=== PATIENT | female | born 1950 | race Caucasian/White ===

== ENCOUNTER → 2018-01-06 08:18 | Outpatient (CLI) | payer MEDICARE, OTHER, SELFPAY ==
[2018-01-06 13:03] LABS: Free T3 3.2 pg/mL (2.18-3.98); Thyroid Stim Hormone (TSH) 0.44 uIU/mL (0.358-3.74)
[2018-01-07 20:07] LABS: Thyroid Peroxidase AB 13 IU/mL (0-34)
[2018-01-08 11:56] LABS: Thyroglobulin Antibody < 1.0 IU/mL (0.0-0.9)
== END ==
PROVIDERS: Family Provider Family Medicine; PCP Family Medicine; Visit Provider Family Medicine
DX: E03.9 Hypothyroidism, unspecified (principal)
CPT/HCPCS: 36415; 84439; 84443; 84481; 86376; 86800

== ENCOUNTER → 2018-01-07 12:03 | Outpatient (CLI) | payer MEDICARE, OTHER, SELFPAY | PROVIDERS: Family Provider Family Medicine; PCP Family Medicine; Visit Provider Family Medicine | DX: E04.9 Nontoxic goiter, unspecified (principal) | CPT/HCPCS: 76536 ==

== ENCOUNTER → 2018-01-08 08:11 | Outpatient (CLI) | payer MEDICARE, OTHER, SELFPAY | PROVIDERS: Family Provider Family Medicine; PCP Family Medicine; Visit Provider Family Medicine | DX: E04.1 Nontoxic single thyroid nodule (principal) | CPT/HCPCS: 78012; A9516 ==

== ENCOUNTER 2018-01-24 09:15 | Observation (INO) | payer MEDICARE, OTHER, SELFPAY ==
[2018-01-24] VITALS (8 sets, daily range): BP systolic 134–146; BP diastolic 77–94; PULSE 86–106; RESP 15–16; TEMP 36.3–36.7; O2SAT 93–98; BMI 27.3
--- NOTE | 2018-01-24 | THYROID_PTH ---
PATIENT: DB GAGE LOC: MS3 U#:[id number] AGE/SX: 67/F ROOM: DC316 RE01/24/[address]: Dr. Michael Turner MD : 1950 BED: 1 DIS: 01/25/2018 SPEC #: [id number] RECD: 01/24/18 08:47 STATUS: TARI REAnnie #: [id number] VICKY: 01/24/18 00:[address]: Michael Turner DEPT: SURGICAL PATHOLOGY RECD BY: Nika Darden ENTERED: 01/24/18 10:22 SP TYPE: THYROID OTHR DR: Dr. Adele Lawrence MD Tissues: Thyroid gland, NOS Procedures: Frozen Section (charge) Surgery Specimen Level V Frozen (no charge) HEADER OPERATION: Thyroidectomy, partial PRE-OP DIAGNOSIS: Left toxic uninodular goiter with no crisis, dysphagia TISSUE SUBMITTED: Left thyroid lobe ? frozen section to lb 0843 FROZEN SECTION DIAGNOSIS Left lobe of thyroid, lobectomy: Colloid nodule. AM:kiana 01/24/18 MICROSCOPIC DIAGNOSIS Left lobe of thyroid, lobectomy: Multinodular goiter. See comment. MONICA:kiana 01/28/18 COMMENT The smaller nodule show focal calcifications. MICROSCOPIC DESCRIPTION Slides are reviewed. GROSS DESCRIPTION Received fresh for frozen section consultation labeled with the patient's name is a specimen designated left thyroid lobe. The specimen consists of a lobe of thyroid measuring 5 x 4 x 1.6 cm and weighing 10.8 gm. No orientation is provided. The specimen is inked and serially sectioned to reveal two gelatinous nodules. The largest nodule measures 2.5 cm and occupies the mid portion of the specimen. A smaller nodule measuring 0.9 cm is present adjacent to this nodule. The entire specimen is submitted as follows: 1 - sales representative gas service sections of the largest nodule is submitted for frozen section consultation in one block, 2-7 ? remainder of larger nodule, 8 ? smaller nodule, 9 & 10 ? remainder of the tissue with smaller fragments of largest nodule. / AM:kiana 01/24/18 TC:5 CPT: 04307, 89730
[2018-01-24 06:25] LABS: Hematocrit 41.3 % (37-47); Hemoglobin 13.6 g/dl (12.0-15.0); Mean Corp Hgb Conc 32.9 g/gl (32-36); Mean Corpuscular Hgb 28.5 pg (27.0-32.0); Mean Corpuscular Volume 86.4 fL (81-99); Mean Platelet Vol. 8.9 fl (6.2-12.0); Platelet Count 214 K/mm3 (150-450); RBC Distribution Width CV 13.7 % (11.6-14.6); RBC Distribution Width SD 43.2 fl (35.1-43.9); Red Blood Count 4.78 M/mm3 (4.2-5.4); White Blood Count 6.5 K/mm3 (4.4-11.0)
[2018-01-24 06:28] LABS: Scan Indicated on CBC? Y/N NO
[2018-01-24 06:36] LABS: Anion Gap 11 (5-15); BUN 18 mg/dL (7-18); BUN/Creat Ratio 26.1 RATIO (10-20); Calcium,Total 8.5 mg/dL (8.5-10.1); Chloride 108 mmol/L (98-107); Creatinine, Serum 0.69 mg/dL (0.55-1.02); EST Glomerular Filtration Rate 91 mL/min (>60); Est Glom Filt Rate - Afr Amer 110 mL/min (>60); Estimated Creatinine Clearance 70.19 ml/min; Glucose 92 mg/dL (74-106); Potassium 4.1 mmol/L (3.5-5.1); Sodium Level 143 mmol/L (136-145)
--- NOTE | 2018-01-24 09:09 | PCM.OPRPT ---
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 Laboratory testing showed her TSH to be depressed suggesting subclinical hyperthyroidism and nuclear medicine uptake scan showed a autonomous nodule within the bed of left thyroid. Given the increasing size and risk of hyperthyroidism she elected surgical excision for both cure and definitive evaluation. The risks, alternatives, potential benefits, and complications were discussed at length and any questions answered to the patient and/or caregiver's satisfaction. Witnessed informed consent was obtained in the office, and the patient and/or caregiver was agreeable to proceed. Procedure went as follows: The patient was identified in the preoperative holding and brought to the operating room, placed under general anesthesia and intubated. The neuro monitoring electrodes were then placed in the chest and confirmed to be operational in accordance with the advertising sales associate's directions to allow for recurrent laryngeal nerve monitoring. The neck was then prepped and draped in usual sterile fashion and the planned skin incision was marked 2 finger breadths above the sternal notch with a marking pen. The incisional line was then injected with 1% lidocaine with 100,000 epinephrine for a total of 4 cc. After allowing for vasoconstriction, a 15 blade scalpel was used to make an incision 8 cm in length through the skin and subcutaneous tissues and platysma. A subplatysmal flap was then elevated superiorly and inferiorly to allow placement of the self-retaining thyroid retractor. The strap muscles were then divided in the midline and beginning on the left side the thyroid lobe dissected in a sub-capsular fashion. The inferior, middle, and superior thyroid vessels were individually clamped and ligated with a combination of 3-0 silk sutures and vascular clips. The parathyroid glands were identified along the inferior vascular pedicle and preserved the recurrent laryngeal nerve was also identified and followed to its nerve entry point and the thyroid gland dissected free of its attachments to the trachea at Broyle's ligament. This was then transected at the isthmus and sent for pathologic evaluation. No significant bleeding was encountered and #7 flat drains were then placed into each tracheoesophageal groove and brought out through a separate stab incision in the neck and secured with 3-0 silk sutures. The strap muscles were then re-approximated in the midline with a running 3-0 Vicryl suture followed by interrupted 3-0 Vicryl sutures to close the platysma and subcutaneous tissues. A 5-0 Monocryl was then used to close the skin followed by Steri-Strips completing the procedure. An NG tube was then placed to decompress the stomach and the patient returned to anesthesia, revived and extubated having tolerated the procedure well. Type of Anesthesia:: General Anesthesiologist: Nixon Dominguez Special Medications: none Specimen's removed: left lobe of thyroid Drains: #7 flat HAMILTON Estimated Blood Loss (mL): 10 mL Fluids Replaced: 1400 mL - Complications none - Admit VTE Documentation VTE Present on Admission: No VTE Mechan Device Prophylaxis: SCD's VTE Pharm Prophylaxis ordered?: No
--- NOTE | 2018-01-24 09:14 | PCM.DC ---
- Discharge Diagnoses Current Active Problems: Current Active and Chronic Problems (This Medical Record has been edited. 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 Call your doctor if your incision/area has: Increased Pain/ Swelling, Increased Redness, Swelling at the incision site Call your doctor if you observe: Fever of 101 or Higher, Uncontrolled pain Suture Line Care: Avoid Pulling/Pushing Cleanse incision/area with: Keep Dressing Clean & Dry Allergies/Adverse Reactions: Allergies latex Allergy (Verified 01/17/18 08:41) Rash Medications to take at Discharge Estradiol [Estrace] 1 mg PO BID 04/10/16 Aspirin E.C. [Ecotrin] 81 mg PO DAILY@0800 01/17/18 Cholecalciferol (Vitamin D3) [Vitamin D3] 2,000 unit PO DAILY 01/17/18 L.acidoph,Paracasei, B.lactis [Probiotic] 1 each PO DAILY 01/17/18 Loratadine 10 mg PO PRN PRN 01/17/18 Multivit with Calcium,Iron,Min [Multiple Vitamins For Women] 2 each PO DAILY 01/17/18 Primary Care Physician: Adele Lawrence MD [Primary Care Provider] - Test Results: Test results from this visit will be discussed in further detail at your follow-up appointment, if applicable. Please Follow Up With: Michael Turner MD When: 10 days
[2018-01-24] MEDS: Dext 5%-0.45% NS 1,000 ML 125 ML IV (11:24)
[2018-01-24] MEDS: Ibuprofen 400 MG Tablet PO ×3 (11:24→22:56)
[2018-01-24] MEDS: Acetaminophen 325 MG Tablet 650 MG PO (13:43)
[2018-01-25 03:30] VITALS: BP 126/66; PULSE 81; RESP 15; TEMP 36.8; O2SAT 94
[2018-01-25] MEDS: Ibuprofen 400 MG Tablet PO (05:38)
[2018-01-25 09:00] VITALS: BP 150/86; PULSE 100; RESP 16; TEMP 36.6; O2SAT 94
--- NOTE | 2018-01-25 09:02 | PCM.PN.SRG ---
Subjective: Doing well, denies pain, numbness, tingling or voice change. Objective: Well appearing, neck incision intact without swelling or drainage. Chvostek's sign negative. - Physical Exam General: Alert, Oriented x3 HEENT: Atraumatic, PERRLA Oral: Moist Mucosa Neck: Supple, Trachea Midline, - - incision intact Neurological: Cranial nerves II-XII grossly intact Psych/Mental Status: Alert and oriented to time, place, person, mood and affect Vital Signs Temp Pulse Resp BP Pulse Ox 98.2 F 81 15 126/66 H 94 01/25/18 03:30 01/25/18 03:30 01/25/18 03:30 01/25/18 03:30 01/25/18 03:30 Oxygen Delivery Method Room Air Weight: 72.2 kg Body Mass Index (BMI) 27.3 Intake and Output for Last 24 Hours 01/23/18 01/24/18 01/25/18 23:59 23:59 23:59 Intake Total 3397 / 3397 300 / 300 Output Total 50 / 50 5 / 5 Balance 3347 / 3347 295 / 295 Medical Necessity - Tobacco Use Smoking Status: Never smoker Tobacco Use: Non-smoker Assessment/Plan Doing well s/p left hemithyroidectomy. Drain output minimal and removed at bedside. Discharge to home with follow-up next week in the office.
== END 2018-01-25 09:55 | disposition home or self-care (01) ==
LOC: SDC 10:13
PROVIDERS: Admitting Provider Otolaryngology; Family Provider Family Medicine; PCP Family Medicine; Visit Provider Otolaryngology
PROC: (CPT 60220; principal; 2018-01-24 07:10)
DX: E04.2 Nontoxic multinodular goiter (principal); Z79.82 Long term (current) use of aspirin; D64.9 Anemia, unspecified; M19.90 Unspecified osteoarthritis, unspecified site; H40.9 Unspecified glaucoma; K21.9 Gastro-esophageal reflux disease without esophagitis; R13.10 Dysphagia, unspecified; K58.9 Irritable bowel syndrome, unspecified
CPT/HCPCS: 60220; 80048; 85027; 88307; 88331; 93005; 96360; 96361; 97802; 99218; J7120; G0378; G0379; J2405; J3490; J7799

== ENCOUNTER 2018-02-05 06:39 | Day surgery (SDC) | payer MEDICARE, OTHER, SELFPAY ==
[2018-02-05 07:21] VITALS: BP 140/93; PULSE 90; RESP 18; TEMP 36.4; O2SAT 95; BMI 26.8
[2018-02-05 09:16] VITALS: BP 136/91; BP 140/93; PULSE 76; RESP 14; TEMP 36.3; O2SAT 100
--- NOTE | 2018-02-05 09:17 | PCM.OPRPT ---
Report of Operation Date of Procedure: 02/05/18 Pre-Operative Diagnosis: Screening for colon cancer, history of polyp Post-Operative Diagnosis: Internal hemorrhoid grade 1 Surgery/Procedure Performed:: Colonoscopy Type of Anesthesia:: MAC Anesthesiologist: Michael Malagon Specimen's removed: None Estimated Blood Loss (mL): None Description of Procedure: Procedure: Colonoscopy After reviewing the risks benefits, the patient was deemed in satisfactory condition to undergo procedure. After obtaining informed consent, the scope was passed under direct visualization. Throughout the procedure, the patient's blood pressure pulse and position saturations were monitored continuously anesthesia. The colonoscope was introduced through the anus and advanced to the cecum, identified by the appendiceal orifice, IC valve and transillumination. Patient was noted to have torturous rectosigmoid area. The patient tolerated procedure well. Quality of bowel prep was good. Findings: The perianal and digital rectal exam revealed small internal hemorrhoid. The colon (entire examined portion) appeared normal. Retroflexed view of the distal rectum and anal verge showed a small grade 1 internal hemorrhoid Impression: 1. The entire colon is normal. 2. Small grade 1 internal hemorrhoid Recommendations: Repeat colonoscopy in 10 years for screening purposes - Complications none
[2018-02-05 09:20] VITALS: BP 140/93; BP 149/95; PULSE 76; RESP 14; O2SAT 97
[2018-02-05 09:26] VITALS: BP 140/93; BP 142/93; PULSE 73; RESP 16; O2SAT 98
[2018-02-05 09:31] VITALS: BP 140/93; BP 143/94; PULSE 75; RESP 16; TEMP 36.4; O2SAT 100
[2018-02-05 09:57] VITALS: BP 140/93
== END 2018-02-05 10:07 | disposition home or self-care (01) ==
LOC: EN 06:39 → AC 06:40
PROVIDERS: Family Provider Family Medicine; PCP Family Medicine; Visit Provider Surgery
PROC: 0DJD8ZZ Inspection of Lower Intestinal Tract, Via Natural or Artificial Opening Endoscopic (ICD-10-PCS; CPT 45378; principal; 2018-02-05 07:55)
DX: Z12.11 Encounter for screening for malignant neoplasm of colon (principal); K64.8 Other hemorrhoids; Z86.010 Personal history of colon polyps; K58.9 Irritable bowel syndrome, unspecified; E06.9 Thyroiditis, unspecified; Z86.2 Personal history of diseases of the blood and blood-forming organs and certain disorders involving the immune mechanism; Z78.0 Asymptomatic menopausal state; Z79.82 Long term (current) use of aspirin
CPT/HCPCS: G0121; J7120

== ENCOUNTER → 2018-02-17 12:27 | Outpatient (CLI) | payer MEDICARE, OTHER, SELFPAY ==
[2018-02-17 14:20] LABS: Thyroid Stim Hormone (TSH) 4.95 uIU/mL (0.358-3.74)
== END ==
PROVIDERS: Family Provider Family Medicine; PCP Family Medicine; Visit Provider Otolaryngology
DX: E05.10 Thyrotoxicosis with toxic single thyroid nodule without thyrotoxic crisis or storm (principal)
CPT/HCPCS: 36415; 84443

== ENCOUNTER → 2018-05-22 09:45 | Outpatient (CLI) | payer MEDICARE, OTHER, SELFPAY ==
[2018-05-22 11:19] LABS: Thyroid Stim Hormone (TSH) 6.84 uIU/mL (0.358-3.74)
== END ==
PROVIDERS: Family Provider Family Medicine; PCP Family Medicine; Referring Provider Otolaryngology; Visit Provider Otolaryngology
DX: E05.10 Thyrotoxicosis with toxic single thyroid nodule without thyrotoxic crisis or storm (principal)
CPT/HCPCS: 36415; 84443

== ENCOUNTER → 2018-07-11 10:42 | Outpatient (CLI) | payer MEDICARE, OTHER, SELFPAY ==
--- NOTE | 2018-07-11 10:49 | RAD_ITS ---
STUDY: X-RAY - LEFT HAND REASON FOR EXAM: Female, 67 years old. Pain after a fall TECHNIQUE: 3 view(s) of the hand. COMPARISON: None. FINDINGS: Normal radiocarpal articulation. Normal distal radioulnar joint. Normal visualized carpal bones. Normal carpal articulations Normal carpometacarpal articulation of the thumb. Normal second through fifth carpometacarpal joints. Normal metacarpi. Normal metacarpophalangeal joint of the thumb. Normal interphalangeal joint of the thumb. Normal proximal and distal phalanges of the thumb. Normal metacarpophalangeal joints of the second through fifth fingers. Normal proximal and distal interphalangeal joints of the second through fifth fingers. Normal phalanges of the second through fifth fingers. The soft tissue structures are unremarkable. RAD/Hand Min 3 Views IMPRESSION: Normal x-ray examination of the hand. Electronically Signed: Haider Kenyon MD at 16:12 EST , Service support ,
--- NOTE | 2018-07-11 10:49 | RAD_ITS ---
STUDY: X-RAY - LEFT WRIST REASON FOR EXAM: Female, 67 years old. Fall. Left wrist and thumb pain at MCP joint. TECHNIQUE: 3 view(s) of the wrist were obtained. COMPARISON: None. FINDINGS: There is negative ulnar variance. Normal radiocarpal articulation. There is arthrosis of the radioulnar articulation. Normal carpal bones. There is arthrosis of the radial carpal row. Normal carpometacarpal articulation of the thumb. Normal second through fifth carpometacarpal articulations. Normal visualized metacarpal bones. The soft tissue structures are unremarkable. RAD/Wrist min 3 Views IMPRESSION: Negative ulnar variance. Osteopenia with osteoarthritic changes. No acute abnormality. Electronically Signed: Derian Turner MD at 11:19 EST , Service support ,
--- NOTE | 2018-07-11 11:00 | RAD_ITS ---
STUDY: X-RAY - RIGHT ELBOW REASON FOR EXAM: Female, 67 years old. Pain TECHNIQUE: 4 view(s) of the elbow. COMPARISON: None. FINDINGS: Normal visualized humerus, radius and ulna. Normal radiocapitellar and ulnotrochlear articulations. The soft tissue structures are unremarkable. RAD/Elbow min 3 Views IMPRESSION: Normal x-ray examination of the elbow. Electronically Signed: Haider Kenyon MD at 17:08 EST , Service support ,
== END ==
PROVIDERS: Family Provider Family Medicine; PCP Family Medicine; Referring Provider Family Medicine; Visit Provider Family Medicine
DX: S50.01XA Contusion of right elbow, initial encounter (principal); S60.212A Contusion of left wrist, initial encounter
CPT/HCPCS: 73080; 73110; 73130

== ENCOUNTER → 2018-10-29 | Outpatient (CLI) | payer MEDICARE, OTHER, SELFPAY ==
[2018-10-29 12:52] LABS: Thyroid Stim Hormone (TSH) 5.48 uIU/mL (0.358-3.74)
== END | disposition home or self-care (01) ==
LOC: LAB.FUTURE 11:09
PROVIDERS: Family Provider Family Medicine; PCP Family Medicine; Referring Provider Otolaryngology; Visit Provider Otolaryngology
DX: E05.10 Thyrotoxicosis with toxic single thyroid nodule without thyrotoxic crisis or storm (principal)
CPT/HCPCS: 36415; 84443

== ENCOUNTER → 2018-11-07 | Outpatient (CLI) | payer MEDICARE, OTHER, SELFPAY ==
[2018-11-07 14:15] LABS: Anion Gap 8 (5-15); BUN 21 mg/dL (7-18); BUN/Creat Ratio 24.9 RATIO (10-20); Calcium,Total 9.3 mg/dL (8.5-10.1); Chloride 105 mmol/L (98-107); Creatinine, Serum 0.84 mg/dL (0.55-1.02); EST Glomerular Filtration Rate 72 mL/min (>60); Est Glom Filt Rate - Afr Amer 87 mL/min (>60); Glucose 83 mg/dL (74-106); Potassium 4.1 mmol/L (3.5-5.1); Sodium Level 142 mmol/L (136-145)
== END | disposition home or self-care (01) ==
PROVIDERS: Family Provider Family Medicine; PCP Family Medicine; Referring Provider Otolaryngology; Visit Provider Otolaryngology
DX: R42 Dizziness and giddiness (principal); E05.10 Thyrotoxicosis with toxic single thyroid nodule without thyrotoxic crisis or storm
CPT/HCPCS: 36415; 80048; 83735; 84443

== ENCOUNTER → 2018-12-11 | Outpatient (CLI) | payer MEDICARE, OTHER, SELFPAY ==
[2018-11-13 08:21] VITALS: BMI 26.8
== END | disposition home or self-care (01) ==
LOC: LAB.FUTURE 10:26 → LAB 10:29
PROVIDERS: Family Provider Family Medicine; PCP Family Medicine; Referring Provider Otolaryngology; Visit Provider Otolaryngology
DX: E89.0 Postprocedural hypothyroidism (principal)
CPT/HCPCS: 36415; 84443

== ENCOUNTER → 2019-01-09 | Outpatient (CLI) | payer MEDICARE, OTHER, SELFPAY ==
[2019-01-06 10:49] VITALS: BMI 26.8
--- NOTE | 2019-01-09 15:08 | RAD_ITS ---
STUDY: X-RAY - LUMBAR SPINE REASON FOR EXAM: Female, 68 years old. Chronic lower back pain. Recently the pain radiates into the pelvis. TECHNIQUE: 5 view(s) of the lumbar spine were obtained. COMPARISON: None FINDINGS: Normal lumbar lordosis. There is no substantial scoliosis. There is minimal anterolisthesis of L4 and L5. There is otherwise preserved. There is minimal endplate spondylosis and disc space narrowing, most marked at T12-L1 and the lower thoracic spine. There is no evidence of acute fracture or loss of vertebral axial height. There is no demonstrated spondylolysis of the pars interarticulares. The soft tissue structures are unremarkable. RAD/L/S Spine Min 4 Views IMPRESSION: Mild degenerative changes of the lumbar spine. Electronically Signed: Harjeet John DO at 18:22 EDT Tel [phone], Service support ,
== END | disposition home or self-care (01) ==
PROVIDERS: Family Provider Family Medicine; PCP Family Medicine; Referring Provider Family Medicine; Visit Provider Family Medicine
DX: M54.9 Dorsalgia, unspecified (principal); R10.2 Pelvic and perineal pain
CPT/HCPCS: 72110

== ENCOUNTER → 2019-01-15 | Outpatient (CLI) | payer MEDICARE, OTHER, SELFPAY ==
[2019-01-06 10:49] VITALS: BMI 26.8
--- NOTE | 2019-01-15 14:31 | NEURO ---
NCS and/or EMG Patient Report Ordering Doctor: Jessica Briggs DATE OF SERVICE: 01/15/19 Klaudia Diego is a 68-year-old female presents for elective diagnostic testing of the left upper limb. She reports numbness, tingling and weakness in the left hand which is been progressively worsening. Electrodiagnostic findings left median motor nerve demonstrates prolonged distal latency with normal amplitude and conduction velocity. Normal left ulnar response. Normal ulnar median F waves. Prolonged left median sensory latency is noted at the wrist. Normal ulnar and radial sensory responses. On needle EMG, all muscles tested in the left upper limb showed no evidence of denervation with normal motor unit action potentials. Electrodiagnostic impression: This is an abnormal study in the left upper limb 1. Electrodiagnostic findings demonstrate left-sided median mononeuropathy. This is consistent with a mild left carpal tunnel syndrome. 2. No electrodiagnostic evidence is noted for cervical radiculopathy. If there are any further questions, please do not hesitate to contact me.
== END | disposition home or self-care (01) ==
LOC: PSN 13:42
PROVIDERS: Family Provider Family Medicine; PCP Family Medicine; Referring Provider Orthopaedic Surgery; Visit Provider Orthopaedic Surgery
DX: G56.02 Carpal tunnel syndrome, left upper limb (principal)
CPT/HCPCS: 95886; 95909

== ENCOUNTER → 2019-01-21 | Outpatient (CLI) | payer MEDICARE, OTHER, SELFPAY ==
[2018-11-13 08:21] VITALS: BMI 26.8
[2019-01-06 10:49] VITALS: BMI 26.8
[2019-01-21 15:48] LABS: Thyroid Stim Hormone (TSH) 2.81 uIU/mL (0.358-3.74)
== END | disposition home or self-care (01) ==
LOC: LAB.FUTURE 13:57
PROVIDERS: Family Provider Family Medicine; PCP Family Medicine; Referring Provider Otolaryngology; Visit Provider Otolaryngology
DX: E89.0 Postprocedural hypothyroidism (principal)
CPT/HCPCS: 36415; 84443

== ENCOUNTER → 2019-04-07 10:04 | Outpatient (CLI) | payer MEDICARE, OTHER, SELFPAY ==
[2019-01-06 10:49] VITALS: BMI 26.8
[2019-04-07 13:16] LABS: Thyroid Stim Hormone (TSH) 1.95 uIU/mL (0.358-3.74)
== END ==
PROVIDERS: Family Provider Family Medicine; PCP Family Medicine; Referring Provider Otolaryngology; Visit Provider Otolaryngology
DX: E89.0 Postprocedural hypothyroidism (principal)
CPT/HCPCS: 36415; 84443